=== PATIENT | female | born 1990 | race Caucasian/White ===

== ENCOUNTER 2019-05-30 10:48 | Emergency (ER) | payer OTHER ==
[~2019-05-30] VITALS: Ht 152.4 cm; Wt 61.2 kg
[2019-05-30 11:00] LABS: URINE BILIRUBIN NEGATIVE (Negative); URINE BLOOD TRACE (Negative); URINE CLARITY CLEAR; URINE COLOR YELLOW; URINE GLUCOSE-RANDOM NEGATIVE (Negative); URINE KETONES 1+ (Negative); URINE LEUKOCYTES-REFLEX TRACE (Negative); URINE NITRITE-REFLEX NEGATIVE (Negative); URINE PROTEIN NEGATIVE (Negative); URINE SPECIFIC GRAVITY 1.015 (1.005-1.030); URINE UROBILINOGEN 0.2 E.U./dl (0.2-1.0)
[2019-05-30 11:11] LABS: SQUAMOUS >10 Many /LPF (0-3); URINE WBC-REFLEX 6-15 Few /HPF (0-5)
[2019-05-30 11:12] LABS: BACTERIA-REFLEX >30 Many /HPF (None Seen); CASTS None Seen /LPF (None Seen); CRYSTALS None Seen /LPF (None Seen); MUCUS 4-6 Moderate strn/LPF (None Seen); URINE RBC 0-2 Rare /HPF (0-2); WBC CLUMPS Few (None Seen)
[2019-05-30 11:51] LABS: HEMATOCRIT 39.7 % (37.0-47.0); HEMOGLOBIN 13.5 gm/dL (12.0-15.0); MCH 29.1 pg (26.0-34.0); MCHC 33.9 g/dL (28.0-37.0); MPV 7.5 fl. (7.2-11.1); NUCLEATED RBCS 0 /100WBC; PLATELET COUNT* 258 thou/uL (150-400); RBC 4.62 mil/uL (4.20-5.00); RDW-CV 13.8 % (10.5-14.5); WBC 17.5 thou/uL (4.0-11.0)
[2019-05-30 11:56] LABS: CALCIUM 8.3 mg/dL (8.5-10.1); POTASSIUM 3.5 mmol/L (3.5-5.1)
[2019-05-30 12:01] LABS: ALBUMIN 3.5 g/dL (3.4-5.0); TOTAL BILIRUBIN 0.9 mg/dL (<0.1-1.0); TOTAL PROTEIN 7.7 g/dL (6.4-8.2)
[2019-05-30] MEDS ORDERED: CEFDINIR300 MG PO (12:55)
[2019-05-30] MEDS ORDERED: ONDANSETRON HCL4 M2 PO (12:55)
[2019-05-30 13:19] LABS: ABSOLUTE LYMPHOCYTES 0.7 thou/uL (0.8-5.3); ABSOLUTE MONOCYTES 1.1 thou/uL (0.0-1.2); ABSOLUTE NEUTROPHILS 15.8 thou/uL (1.6-8.1); PLATELET ESTIMATE ADEQUATE
[2019-05-30 13:48] VITALS: BP 90/39
== END 2019-05-30 13:52 | disposition home or self-care (01) ==
LOC: M.ERS 10:48
PROVIDERS: Nurse Practitioner Family
DX: O86.20 Urinary tract infection following delivery, unspecified (principal); D72.829 Elevated white blood cell count, unspecified; Z98.890 Other specified postprocedural states

== ENCOUNTER 2019-11-21 15:12 | Emergency (ER) | payer OTHER ==
[~2019-11-21] VITALS: Ht 152.4 cm; Wt 72.6 kg
[~2019-11-21 15:12] MED LIST: CEFDINIR300 MG PO; ONDANSETRON HCL4 M2 PO
[2019-11-21] MEDS ORDERED: KEFLEX500 M1 PO (16:30)
[2019-11-21 16:41] VITALS: BP 131/70
== END 2019-11-21 16:42 | disposition home or self-care (01) ==
LOC: M.ERS 15:12
DX: S80.811A Abrasion, right lower leg, initial encounter (principal); L03.115 Cellulitis of right lower limb; Z98.890 Other specified postprocedural states; W22.8XXA Striking against or struck by other objects, initial encounter; Y93.11 Activity, swimming; Y92.828 Other wilderness area as the place of occurrence of the external cause; Y99.8 Other external cause status